=== PATIENT | female | born 1970 | race Two or more races ===

== ENCOUNTER 2017-04-15 22:20 | Emergency (ER) | payer OTHER ==
[~2017-04-15] VITALS: Ht 154.9 cm; Wt 72.6 kg
[2017-04-15 22:57] VITALS: BP 150/98
[2017-04-15] MEDS ORDERED: AMOX/CLAVULANATE 875 MG TABLET ONE (23:24)
[2017-04-15] MEDS ORDERED: TDAP [DIPH/PERTUSSIS/TET] 0.5 ML VIAL IM ONE ×2 (23:24→23:30)
[2017-04-15] MEDS ORDERED: AMOX/CLAVULANATE 875 MG TABLET PO ONE (23:30)
== END 2017-04-15 23:40 | disposition home or self-care (01) ==
LOC: ER 22:26
DX: S61.451A Open bite of right hand, initial encounter (principal); Z23 Encounter for immunization; W54.0XXA Bitten by dog, initial encounter; Y92.89 Other specified places as the place of occurrence of the external cause; Y93.89 Activity, other specified; Y99.8 Other external cause status
CPT/HCPCS: 73130; 90471; 90715; 99284; A4606; A6402; Z7610